=== PATIENT | female | born 1995 | race Caucasian/White ===

== ENCOUNTER 2019-07-28 09:24 | Emergency (ER) | payer OTHER, SELFPAY ==
[2019-07-28 09:40] VITALS: BP 137/70; PULSE 134; RESP 20; TEMP 38; O2SAT 100
--- NOTE | 2019-07-28 10:10 | ED.URI ---
HPI - URI/Sore Throat General Chief Complaint: Upper Respiratory Infection Stated Complaint: BODY ACHES/HEADACHE/SORE THROAT/COUGH Time Seen by Provider: 07/28/19 10:05 Source: patient and RN notes reviewed Mode of arrival: ambulatory Limitations: no limitations History of Present Illness HPI Narrative: Patient presents today complaining of subjective fever, weakness, headache, mild cough since last night. Denies rhinorrhea, congestion, sore throat, ear pain. Denies history of asthma or COPD. She is a non-smoker. She did not receive a flu vaccine. She has been taking ibuprofen with some relief. MD elicited complaint: fever Related Data Home Medications Medication Instructions Recorded Confirmed No Home Medications 07/28/19 07/28/19 Allergies Allergy/AdvReac Type Severity Reaction Status Date / Time Sulfa (Sulfonamide Allergy Rash Verified 07/28/19 09:47 Antibiotics) Review of Systems Review of Systems: Narrative: CONSTITUTIONAL: Denies chills, or sweats.+ Body aches, fever EYES: Denies visual changes, redness, or discharge. ENT: Denies rhinorrhea, congestion, sore throat, or otalgia. CARDIOVASCULAR: Denies chest pain, palpitations, or edema. RESPIRATORY: Denies dyspnea.+ Cough GASTROINTESTINAL: Denies abdominal pain, nausea, vomiting, or diarrhea. GENITOURINARY: Denies dysuria or hematuria. SKIN: Denies rash, itching, or wounds. MUSCULOSKELETAL: Denies back pain, joint pain, or myalgia. NEUROLOGIC: Denies numbness, tingling.+ Headache PSYCH: Denies depression or anxiety. PMFSH Comments At time of signature, I have reviewed and agree with nursing past medical, surgical, social and family history unless otherwise noted. Please see nursing chart for further information. There is no relevant family history pertinent to the presenting complaint Exam Narrative: Exam Narrative: GENERAL: Ill-appearing, well-nourished, and in no acute distress. HEAD: Normocephalic, atraumatic. EYES: EOMI. No redness or drainage. Conjunctivae normal. ENT: Mucous membranes pink and moist. Nares clear. No rhinorrhea. TMs normal bilaterally. Throat normal. Uvula midline. NECK: Normal AROM. Supple. No lymphadenopathy. CHEST: No respiratory distress. Clear to auscultation. HEART: Regular rhythm. + Tachycardia. No murmur appreciated. Normal peripheral pulses. MUSCULOSKELETAL: No bony tenderness. EXTREMITIES: Normal range of motion. No edema. SKIN: Warm, dry, no rash. NEURO: No focal deficits. Alert and oriented x3. Gait steady. PSYCH: Normal affect. No signs of depression or anxiety. Course Vital Signs Vital signs: Vital Signs Temperature 100.4 F H 07/28/19 09:40 Pulse Rate 134 H 07/28/19 09:40 Respiratory Rate 20 07/28/19 09:40 Blood Pressure 137/70 07/28/19 09:40 Pulse Oximetry 100 07/28/19 09:40 Temperature 100.4 F H 07/28/19 09:40 Pulse Rate 134 H 07/28/19 09:40 Respiratory Rate 20 07/28/19 09:40 Blood Pressure 137/70 07/28/19 09:40 Pulse Oximetry 100 07/28/19 09:40 Reviewed. Tachycardia likely due to fever. Pt has been instructed to follow up with her PCP regarding her elevated blood pressure today. MDM - URI/Sore Throat Differential Diagnosis Differential diagnosis: Likely upper respiratory infection, viral infection, bronchitis and influenza Lab Data Attestation: I reviewed the patient's lab results. Labs: Influenza A Screen Positive Reference Range: Negative Influenza B Screen Negative Reference Range: Negative Critical Care Time Critical Care Time Critical Care Time: No Discharge Plan Discharge Clinical Impression: Influenza A Patient Disposition: Home, Self-Care Condition: Stable Instructions: Influenza (DC) Additional Instructions: You are positive for influenza A. You will be contagious for 4 additional days. Please rest and stay hydrated at home. Take [id number] medication for your symptoms
== END 2019-07-28 10:21 | disposition home or self-care (01) ==
PROVIDERS: Emergency Provider Nurse Practitioner
DX: J10.1 Influenza due to other identified influenza virus with other respiratory manifestations (principal)
CPT/HCPCS: 87804; 99213; G0463

== ENCOUNTER 2020-12-08 16:38 | Emergency (ER) | payer OTHER, SELFPAY ==
[2020-12-08 16:48] VITALS: BP 135/70; PULSE 76; RESP 16; TEMP 37.2; O2SAT 100
--- NOTE | 2020-12-08 16:59 | PC.NURSE ---
1700 child sitting drinking out of cup and her diaper is wet at this time.
--- NOTE | 2020-12-08 17:11 | ED.GENADULT ---
HPI - General Adult General Chief complaint: Upper Respiratory Infection Stated complaint: erwin/sore glands/body aches Source: patient and RN notes reviewed Mode of arrival: ambulatory History of Present Illness HPI narrative: This is a 25-year-old female with a presented to urgent care after being exposed to Covid she notes that she has a subjective fever has been feeling fatigued with a headache and patient left side discomfort. Patient notes that her coworker who she had tested positive for Covid. She has been fully vaccinated. Patient's rapid return negative we will do a send out for more accuracy. She describes her left side discomfort as occasional sharp pain that occurs at least once a day. The patient denies SOB, CP, palpitation, extremity numbness, lightheadedness, dizziness, constipation, diarrhea, chills, or fever. Related Data Home Medications Medication Instructions Recorded Confirmed levonorgestrel [Mirena] 1 insert INTRAUTERINE ONCE 12/08/20 12/08/20 Allergies Allergy/AdvReac Type Severity Reaction Status Date / Time Sulfa (Sulfonamide Allergy Rash Verified 12/08/20 16:50 Antibiotics) Review of Systems Review of Systems: Narrative: A 14 organ system Review of Systems was performed and pertinent positives included in the HPI, otherwise remaining ROS is negative. All systems reviewed & are unremarkable except as noted in HPI and below PMFSH Family History Family History (Updated 12/08/20 @ 17:11 by ELLIOT PereiraP-C) Other Family history non-contributory Exam Narrative: Exam Narrative: GENERAL: This is a well-nourished, well-developed patient, in no apparent distress. HEAD: normocephalic, atraumatic. EYES: PERRL. Sclera clear/white. Vision is grossly intact. EARS: External ears normal, auditory canals clear and without drainage, TMs normal without perforation. Hearing grossly intact. NOSE: External nose normal with no obvious nasal discharge, nares without redness, no rhinorrhea. THROAT: Mucous membranes moist, posterior pharynx clear. NECK: Neck supple, non-tender without lymphadenopathy, masses or thyromegaly. CARDIOVASCULAR: Regular rate and rhythm without murmurs, gallops, or rubs. RESPIRATORY: Clear to auscultation. Breath sounds equal bilaterally. No wheezes, rales, or rhonchi. GASTROINTESTINAL: Abdomen soft, non-tender, nondistended. Bowel sounds are active. No hepato-splenomegaly, or palpable masses. No guarding. SKIN: warm, intact with no suspicious lesions or rash, good texture and turgor. NEURO: awake, alert, and oriented to person, place and time. There were no obvious focal neurologic abnormalities. Steady gait EXTREMITIES: Normal range of motion. No edema. No calf tenderness. Negative Homans sign bilaterally. BACK: Nontender without deformity or crepitance. No flank tenderness. Course Course Emergency Course: Rapid Covid negative will do a send out for more accuracy due to patient's history of exposure. She has been fully vaccinated. Advised her to have her fianc? quarantine and get tested. Vital Signs Vital signs: Vital Signs Temperature 98.9 F 12/08/20 16:48 Pulse Rate 76 12/08/20 16:48 Respiratory Rate 16 12/08/20 16:48 Blood Pressure 135/70 12/08/20 16:48 Pulse Oximetry 100 12/08/20 16:48 Temperature 98.9 F 12/08/20 16:48 Pulse Rate 76 12/08/20 16:48 Respiratory Rate 16 12/08/20 16:48 Blood Pressure 135/70 12/08/20 16:48 Pulse Oximetry 100 12/08/20 16:48 Medical Decision Making Differential Diagnosis Differential Diagnosis: COVID Vital Signs Vital Signs: Vital Signs Temperature 98.9 F 12/08/20 16:48 Pulse Rate 76 12/08/20 16:48 Respiratory Rate 16 12/08/20 16:48 Blood Pressure 135/70 12/08/20 16:48 Pulse Oximetry 100 12/08/20 16:48 Temperature 98.9 F 12/08/20 16:48 Pulse Rate 76 12/08/20 16:48 Respiratory Rate 16 12/08/20 16:48 Blood Pressure 135/70 12/08/20 16:48 Pulse Oximetry 100
[2020-12-10 16:43] LABS: SARS-CoV-2 RNA PCR Negative
== END 2020-12-08 17:36 | disposition home or self-care (01) ==
PROVIDERS: Emergency Provider Nurse Practitioner; PCP Nurse Practitioner Family
DX: Z20.2 Contact with and (suspected) exposure to infections with a predominantly sexual mode of transmission (principal)
CPT/HCPCS: 81003; 87426; 99213; C9803; G0463; U0003; U0005